=== PATIENT | male | born 1965 | race Caucasian/White ===

== ENCOUNTER → 2022-10-06 07:40 | Outpatient (CLI) | payer OTHER, SELFPAY ==
--- NOTE | 2022-10-07 02:21 | DI.NM.S_ITS ---
DATE OF SERVICE: 10/06/2022 PROCEDURE: Exercise stress test. INDICATIONS: Fatigue. CARDIAC STRESS: Patient underwent exercise stress test under the supervision of an attending staff. He walked on Cassius protocol for 10 minutes and 12 seconds, achieved maximum heart rate of 183, which was 111% of target heart rate. Resting blood pressure 130/88. Peak blood pressure 220/80. Baseline rhythm was sinus. During stress, no convincing ischemic changes seen. No significant arrhythmias seen. No anginal symptoms or claudication. Achieved 12.8 METs of workload. EDILMA -5%. CONCLUSION: Exercise stress test is negative for inducible ischemia. Good exercise tolerance. Achieved 12.8 METs of workload and walked on Cassius protocol for 10 minutes and 12 seconds. Hypertensive blood pressure response. Resting blood pressure 130/88 and peak blood pressure 220/80 mmHg. No significant arrhythmias or anginal symptoms. Overall, low-risk exercise stress test. AYDEN YEBOAH - BRADLEY/deloris/carter doc#: [id number]/job#: [id number] dd: 10/06/2022 16:49:00 dt: 10/07/2022 02:17:00 DICTATING /COPIES TO: Yolande Patton MD COPIES MNE: FLORECITA;
== END ==
PROVIDERS: PCP Registered Nurse; Referring Provider Registered Nurse; Visit Provider Registered Nurse
DX: I10 Essential (primary) hypertension (principal); R53.83 Other fatigue
CPT/HCPCS: 93017

== ENCOUNTER 2023-06-25 00:48 | Emergency (ER) | payer OTHER, SELFPAY ==
[2023-06-25] VITALS (8 sets, daily range): BP systolic 126–160; BP diastolic 60–90; PULSE 63–78; RESP 16–18; TEMP 36; O2SAT 98–100; BMI 25.7
--- NOTE | 2023-06-25 01:08 | DI.RAD.S_ITS ---
PROCEDURE: XR CHEST 2V INDICATIONS: right sided chest pain TECHNIQUE: 2 views of the chest were acquired. COMPARISON: None. FINDINGS: Surgical changes and devices: None. Lungs and pleura: Lungs are clear. No pleural effusions or pneumothorax. Mediastinum: Mediastinal contours are normal. Heart size is normal. Bones and chest wall: No suspicious bony abnormalities. Soft tissues appear unremarkable. IMPRESSION: No acute cardiopulmonary abnormality is seen. Dictated by: Bethel Watson M.D. on 06/25/2023 at 1:51 Approved by: Bethel Watson M.D. on 06/25/2023 at 1:51
--- NOTE | 2023-06-25 01:51 | ED_ITS ---
HPI - Chest Pain General Chief Complaint: Chest Pain Stated Complaint: rt shoulder pain into chest Time Seen by Provider: 06/25/23 00:52 Source: patient Mode of arrival: Ambulatory Limitations: no limitations History of Present Illness HPI narrative: 58-year-old male with no reported past medical history presents with 2 days of right-sided arm/chest pain. Two days ago patient noticed pain in his right shoulder, but did not think much of it, attributing it to climbing up and down stairs cases at [facility]. Took Motrin at home with some relief of pain. Last night as he was going to bed he noticed the pain moved into his right side and chest, and he became worried. Denies history of heart problems or heart disease. Patient also reports intermittent leakage of urine at the end of his stream. States that this happened once several years ago, but he lost weight and the issue went away until recently. He has not seen his primary care doctor or a urologist for this complaint. He does not take any medications such as Flomax Related Data Previous Rx's Medication Instructions Recorded tamsulosin 0.4 mg capsule 0.4 mg PO DAILY #30 caps 06/25/23 Allergies Allergy/AdvReac Type Severity Reaction Status Date / Time No Known Drug Allergies Allergy Verified 06/25/23 00:59 Review of Systems Review of Systems Narrative: Negative except as noted above Patient History Social History Smoking Status: Never smoker Smoking Status: Never smoker alcohol intake frequency: holidays/special occasions only Substance Use Type: does not use Exam Initial Vital Signs Initial Vital Signs: Vital Signs Temperature 96.8 F L 06/25/23 00:59 Pulse Rate 76 06/25/23 00:59 Respiratory Rate 16 06/25/23 00:59 Blood Pressure 160/75 H 06/25/23 00:59 Pulse Oximetry 99 06/25/23 00:59 Oxygen Delivery Method Room Air 06/25/23 00:59 Const: Awake, alert, no acute distress, nontoxic appearing Eyes: PERRL, EOMI, conjunctiva normal ENT: Atraumatic, dentition normal, mucous membranes moist Cardiac: regular rate, regular rhythm RESP: unlabored, clear bilaterally, no wheezing GI: Atraumatic, soft, nontender, nondistended, no rebound, no guarding MSK: Atraumatic, full range of motion, pulses equal Skin: Warm, Dry, intact, no rashes Neuro: AO x3, CN II-XII grossly intact, moves all extremities Psych: affect normal, mood normal, not suicidal, not homicidal Course Orders Ordered: ED Orders 06/25/23 01:08 XR chest 2V Stat 06/25/23 01:23 EKG-12 Lead Stat 06/25/23 02:05 CBC Auto Diff [Complete Blood Count AUTO DIFF] Stat CMP [Comprehensive Metabolic Panel] Stat Troponin & CK Cardiac Panel Stat 06/25/23 02:52 UA Complete [Urinalysis and Microscopic] Stat Vital Signs Vital signs: Vital Signs - 8 hr 06/25/23 00:59 06/25/23 01:26 06/25/23 01:26 Temperature 96.8 F L Pulse Rate 76 69 Respiratory Rate 16 Blood Pressure 160/75 H 153/83 H Pulse Oximetry 99 99 Oxygen Delivery Method Room Air 06/25/23 01:30 06/25/23 01:30 06/25/23 01:40 Temperature Pulse Rate 63 Respiratory Rate Blood Pressure 139/80 158/90 H Pulse Oximetry 99 Oxygen Delivery Method 06/25/23 01:40 06/25/23 02:00 06/25/23 02:01 Temperature Pulse Rate 70 72 Respiratory Rate Blood Pressure 154/73 H Pulse Oximetry 99 98 Oxygen Delivery Method 06/25/23 02:01 06/25/23 02:30 06/25/23 02:30 Temperature Pulse Rate 71 78 Respiratory Rate Blood Pressure 141/82 H Pulse Oximetry 98 100 Oxygen Delivery Method 06/25/23 03:00 06/25/23 03:00 Temperature Pulse Rate 72 Respiratory Rate 18 Blood Pressure 126/60 Pulse Oximetry 100 Oxygen Delivery Method MDM - Chest Pain Differential Diagnosis Differential diagnosis: Likely pneumothorax, costochondritis and chest pain Lab Data 06/25/23 02:05 06/25/23 02:05 Labs: Lab Results 06/25/23 06/25/23 Range/Units 02:05 02:52 WBC 14.6 H (4.5-11.0) X10^3/uL RBC 4.54 (4.5-5.9) X10^6/uL Hgb 13.9 (13.5-17.5) g/dL Hct 40.8 L (41-53) % MCV 89.8 (80-100) fL MCH 30.7 (26-34) PG MCHC 34.2 (30-36) % RDW 12.8 (11.6-14.8) % Plt Count 279 (150-400) X10^3/uL Neut % (Auto) 74.6 (50-75) % Lymph % (Auto) 15.2 L (25-40) % [place] % (Auto) 8.6 (3-14) % Eos % (Auto) 1.2 L (2-4) % Baso % (Auto) 0.4 (0-2) % Neut # (Auto) 92935 H (7635-8012) /uL Lymph # (Auto) 2200 (6228-0112) /uL [place] # (Auto) 1300 H (0-900) /uL Eos # (Auto) 200 (0-450) /uL Baso # (Auto) 100 (0-100) /uL Sodium 138 (137-145) mmol/L Potassium 4.0 (3.4-5.1) mmol/L Chloride 101 (98-107) mmol/L Carbon Dioxide 26 (22-32) mmol/L BUN 13 (9-20) mg/dL Creatinine 0.75 (0.66-1.25) mg/dL Estimated GFR > 60 (>60) mL/min BUN/Creatinine Ratio 17.3 (6-22) Glucose 136 H (70-100) mg/dL Calcium 9.3 (8.4-10.2) mg/dL Total Bilirubin 0.6 (0.2-1.3) mg/dL AST 26 (17-59) IU/L ALT 24 (<50) IU/L Alkaline Phosphatase 59 (38-126) U/L Total Creatine Kinase 129 (55-170) U/L Troponin I < 0.012 (0.01-0.034) ng/mL Total Protein 8.1 (6.3-8.2) g/dL Albumin 4.4 (3.5-5.0) g/dL Globulin 3.7 (1.7-4.1) g/dL Albumin/Globulin Ratio 1.2 (1.0-2.8) Urine Color Yellow Urine Appearance Clear Urine pH 6.5 (4.5-8.0) Ur Specific Jeff 1.025 (1.000-1.035) Urine Protein Negative (Negative) Urine Glucose (UA) Negative (Negative) g/dL Urine Ketones Negative (NEGATIVE) Urine Occult Blood 1+ H (Negative) Urine Nitrate Negative (Negative) Urine Bilirubin Negative (NEGATIVE) Urine Urobilinogen 0.2 (0.2) E.U./dL Ur Leukocyte Esterase Negative (NEGATIVE) Urine RBC 1-5/hpf (0-5/HPF) Urine WBC None seen (0-5/HPF) Ur Squamous Epith Cells 0-1 /hpf (0-5/HPF) Urine Bacteria Occasional (0-1) (None) Urine Mucus 1+ H (Negative) Ur Culture Indicated? Cult not indicated Vol Urine Centrifuged 10ml (spun) ECG Data Interpretation: Normal sinus rhythm, rate 67 beats per minute, normal axis, normal intervals, no ST T wave changes, no STEMI MDM Narrative Medical decision making narrative: Well-appearing patient with right-sided chest pain. Physical exam is unremarkable, EKG normal sinus rhythm without concerning findings. Heart score 1 based on age, no known risk factors, undetectable troponin. Chest x-ray negative for acute findings. Patient relieved to know that his labs, EKG, chest x-ray were normal and we will continue to take Tylenol and Motrin at home as needed for pain. Urinalysis negative for signs of infection, postvoid residual 50 ml, no evidence of overflow incontinence. Offered trial of Flomax to the patient to see if this improves his symptoms, patient accepted and Flomax sent to pharmacy of choice. He states that due to insurance changes he will talk to his primary care doctor about referral to Urology at his next appointment. ED return precautions discussed at bedside. Patient expressed understanding of the plan and is in agreement at this time. All questions answered at the time of discharge. Discharge Plan Departure Patient Disposition: Home Clinical Impression: Chest pain Instructions: DI for Chest Pain Prescriptions: New tamsulosin 0.4 mg capsule 0.4 mg PO DAILY Qty: 30 0RF Referrals: Theresa Lopez ARNP [Primary Care Provider] - Stand Alone Forms: Patient Portal/API
[2023-06-25 02:21] LABS: Add Manual Diff / Slide Review NO; Basophils Absolute Auto 100 /uL (0-100); Basophils Percent Auto 0.4 % (0-2); Eosinophils Absolute Auto 200 /uL (0-450); Eosinophils Percent Auto 1.2 % (2-4); Hematocrit 40.8 % (41-53); Hemoglobin 13.9 g/dL (13.5-17.5); Lymphocytes Absolute Auto 2200 /uL (1100-4500); Lymphocytes Percent Auto 15.2 % (25-40); Mean Corpuscular HGB Conc 34.2 % (30-36); Mean Corpuscular Hemoglobin 30.7 PG (26-34); Mean Corpuscular Volume 89.8 fL (80-100); Monocytes Absolute Auto 1300 /uL (0-900); Monocytes Percent Auto 8.6 % (3-14); Neutrophils Absolute Auto 10900 /uL (1500-7000); Neutrophils Percent Auto 74.6 % (50-75); Platelet Count 279 X10^3/uL (150-400); Red Blood Cell Count 4.54 X10^6/uL (4.5-5.9); Red Cell Distribution Width 12.8 % (11.6-14.8); White Blood Cell Count 14.6 X10^3/uL (4.5-11.0)
[2023-06-25 02:26] LABS: Alanine Aminotransferase 24 IU/L (<50); Albumin 4.4 g/dL (3.5-5.0); Albumin Globulin Ratio 1.2 (1.0-2.8); Alkaline Phosphatase 59 U/L (38-126); Aspartate Aminotransferase 26 IU/L (17-59); BUN Creatinine Ratio 17.3 (6-22); Bilirubin Total 0.6 mg/dL (0.2-1.3); Blood Urea Nitrogen 13 mg/dL (9-20); Calcium 9.3 mg/dL (8.4-10.2); Carbon Dioxide 26 mmol/L (22-32); Chloride 101 mmol/L (98-107); Creatine Kinase 129 U/L (55-170); Estimated Glomerular Filt Rate > 60 mL/min (>60); Globulin 3.7 g/dL (1.7-4.1); Glucose 136 mg/dL (70-100); HEMOLYSIS 36 (0-50); Sodium 138 mmol/L (137-145); Total Protein 8.1 g/dL (6.3-8.2)
[2023-06-25 02:37] LABS: Troponin I < 0.012 ng/mL (0.01-0.034)
[2023-06-25 03:01] LABS: Appearance Urine UA CLEAR; Bilirubin Urine UA NEGATIVE (NEGATIVE); Color Urine UA YELLOW; Glucose Urine UA NEGATIVE (Negative); Ketones Urine UA NEGATIVE (NEGATIVE); Leukocyte Esterase Urine UA NEGATIVE (NEGATIVE); Nitrite Urine UA NEGATIVE (Negative); Occult Blood Urine UA 1+ (Negative); Protein Urine UA NEGATIVE (Negative); Specific Gravity Urine UA 1.025 (1.000-1.035); Urobilinogen Urine UA 0.2 E.U./dL (0.2); pH Urine UA 6.5 (4.5-8.0)
[2023-06-25 03:06] LABS: RBC Urine 1-5/HPF (0-5/HPF); Urine Volume 10mL (spun); WBC Urine None Seen (0-5/HPF)
[2023-06-25 03:07] LABS: Bacteria Urine Occasional (0-1); Culture Indicated Urine Cult Not Indicated; Mucus Urine 1+ (Negative); Squamous Epithelial Cell Urine 0-1 /HPF (0-5/HPF)
== END 2023-06-25 03:25 | disposition home or self-care (01) ==
PROVIDERS: Emergency Provider Emergency Medicine; PCP Registered Nurse
DX: R07.9 Chest pain, unspecified (principal)
CPT/HCPCS: 51798; 71046; 80053; 81001; 82550; 84484; 85025; 93005; 99282; 99284